=== PATIENT | male | born 1980 | race African-American/Black ===

== ENCOUNTER 2018-02-10 16:36 | Inpatient (IN) | payer SELFPAY ==
[~2018-02-10 16:36] MED LIST: Iopamidol 370 76% 100 ML VIAL ONE; Iopamidol 370 76% 50 ML VIAL FS ONE
--- NOTE | 2018-02-10 16:50 | CT ---
NONCONTRAST HEAD CT: Date: 02/10/18 HISTORY: Evaluate for CVA. Last seen normal at 1530 hours. Found on ground by patient. Right-sided weakness. COMPARISON: 10/06/07. FINDINGS: No parenchymal hemorrhage. No extra-axial hematoma. No midline shift. Basilar cisterns are patent. Br ain volume, age-appropriate. Cortical montgomery-white matter differentiation is preserved. Ventricles and sulci are patent and symmetric. Calvarium is intact. Adequate aeration of the sinuses and mastoid air cells. IMPRESSION: No acute intracranial process. Results of study discussed with Dr. Escalera on 02/10/18 at 1647 hours. CODE CR. POS: [facility]
[2018-02-10 16:55] LABS: #Lymphocytes 1.7 thou/uL (1.20-3.40); #Monocytes 0.6 thou/uL (0.11-0.59); #Neutrophils 4.4 thou/uL (1.40-6.50); %Basophils 0.1 % (0.0-1.0); %Eosinophils 0.6 % (0.0-10.0); %Lymphocytes 24.8 % (21.0-51.0); %Monocytes 9.3 % (0.0-10.0); %Neutrophils 65.3 % (42.0-75.0); Hemoglobin 13.8 g/dL (14.0-18.0); Mean Corpuscular HGB CONC 32.4 g/dL (32.0-36.0); Mean Corpuscular Hemoglobin 28.3 pg (27.0-31.0); Mean Corpuscular Volume 87.3 fL (78.0-98.0); Mean Platelet Volume 7.7 fL (7.4-10.4); Platelet Count 320 thou/uL (130-400); Red Blood Cell (RBC) Count 4.87 mill/uL (4.70-6.10); White Blood Cell (WBC) Count 6.8 thou/uL (4.8-10.8)
[2018-02-10 16:59] LABS: PTT 27.6 SEC (22.9-36.1); Prothrombin Time 12.7 SEC (12.0-14.7)
--- NOTE | 2018-02-10 17:05 | CT ---
CT CERVICAL SPINE WITHOUT CONTRAST: HISTORY: Status post stroke. Fall. COMPARISON: None. TECHNIQUE: CT cervical spine is performed without contrast. Reformatted images are submitted for interpretation . FINDINGS: Straightening of normal cervical lordosis is presumed to be due to patient position, muscle spasm, or cervical collar. The current study is not tailored to assess for ligamentous injury. No craniocervical dissociation. Appropriate alignment of the lateral masses of C1 and C2 as well as the facets. Odontoid process is intact. There are varying degrees of central canal stenosis and foraminal narrowing on the basis of degenerat leodan change. Evaluation is limited by technique. Soft tissue neck structures, upper mediastinum, and lung apices are unremarkable. Cervical spine vertebral body height is maintained. There is no cervical spine fracture. IMPRESSION: 1. No cervical spine fracture. 2. Straightening of normal cervical lordosis as detailed above. If there is concern, consider MRI. POS: [facility]
[2018-02-10 17:09] LABS: ALT (SGPT) 25 U/L (8-55); AST (SGOT) 24 U/L (5-34); Albumin 4.2 g/dL (3.5-5.0); Alkaline Phosphatase 61 U/L (40-150); Anion Gap 9 mmol/L (10-20); BUN (Urea Nitrogen) 10 mg/dL (8.9-20.6); Bilirubin, Total 0.3 mg/dL (0.2-1.2); Calc. Creatinine Clearance 0 mL/min (70-130); Calcium 9.3 mg/dL (7.8-10.44); Carbon Dioxide 27 mmol/L (22-29); Chloride 109 mmol/L (98-107); Estimated GFR-MDRD Greater than 90; Globulin 3.2 g/dL (2.4-3.5); Glucose 93 mg/dL (70-105); Potassium 3.9 mmol/L (3.5-5.1); Protein, Total 7.4 g/dL (6.0-8.3); Sodium 141 mmol/L (136-145)
[2018-02-10] MEDS ORDERED: Heparin 10,000 UNITS/1 ML VIAL ONE ×2 (17:14→17:17)
[2018-02-10] MEDS ORDERED: Lidocaine 1% (PF) 30 ML VIAL ONE (17:14)
--- NOTE | 2018-02-10 17:21 | CT ---
CT ANGIOGRAM OF THE HEAD CT ANGIOGRAM OF THE NECK: HISTORY: Left-sided weakness. COMPARISON: None. TECHNIQUE: CT angiogram of the head and neck are performed in the axial plane. Three-dimensional reformatted im ages are submitted for interpretation. FINDINGS: On the postcontrast head CT cortical montgomery-white matter differentiation appears to be preserved with t he exception of the left insular cortex where there is some subtle hypoattenuation. Bilateral ocular lenses are appropriately located. Both globes are intact. Retrobulbar fat is prese rved. Symmetric attenuation of the optic nerves and ocular rectus muscles. No obvious masses in the oral cavity. Limited evaluation by dental amalgam artifact. Epiglottis has a normal caliber. Preepiglottic fat is preserved. Symmetric attenuation of the parotid and submandibular glands. Thyroid gland is unremarkable. Symme tric attenuation of the cleidomastoid muscles. No evidence of lymphadenopathy. Upper mediastinum and lung apices are unremarkable. Cervical spine vertebral body heights are maintained. No fractures. CT ANGIOGRAM: The aortic arch has appropriate enhancement and luminal diameter. RIGHT CAROTID: The origin of the right carotid artery has appropriate enhancement and luminal diameter. The right c ommon carotid artery, carotid bifurcation, and internal carotid artery have appropriate enhancement a nd luminal diameter. LEFT CAROTID: The origin of the left carotid artery has appropriate enhancement and luminal diameter . The left common carotid artery, carotid bifurcation, proximal and mid internal carotid artery have appropriate enhancement and luminal diameter. The distal internal carotid artery is slightly diminu tive. Both vertebral arteries are patent throughout their course in the neck. Bilateral subclavian arterie s are unremarkable. CT ANGIOGRAM OF THE HEAD: The right intracranial internal carotid artery is unremarkable. There is narrowing of the left aubree us and cavernous carotid segment with vascular occlusion of the left paraclinoid segment. Thrombus e xtends into the ICA trifurcation and into the proximal left and right A1 and M1 segments respectively . There is some contrast opacification of the left A1 segment, likely via patent anterior communicat ing artery. Both A2 segments, right A1 and M1 segments are unremarkable. Opacification of the mid t o distal left M1 segment is likely due to collateral flow, possibly from a patent posterior communica ting artery. The overall vessels in the left and right MCA branches are symmetric. Both intracranial vertebral arteries and the basilar artery have appropriate enhancement and luminal diameter. The left and right P1 segments are unremarkable. 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 Results of the study discussed with Dr. Escalera 02/10/2018 at 12:09 p.m. CODE [place]UR[place] POS: [facility]
[2018-02-10 17:27] LABS: Acetaminophen Less than 6.0 mcg/mL (10.0-30.0); Alcohol Less than 10 mg/dL (Less than 10); Salicylate Less than 8.0 mg/dL (15.0-30.0)
[2018-02-10] MEDS ORDERED: Fentanyl 100 MCG/2 ML VIAL ONE (17:32)
[2018-02-10] MEDS ORDERED: Labetalol HCl 100 MG/20 ML VIAL SLOW IVP PRN (19:09)
[2018-02-10] MEDS ORDERED: niCARdipine HCl 25 MG in Sodium Chloride 0.9% 250 ML 240 ML IVPB PRN (19:09)
[2018-02-10 20:26] LABS: Actual Bicarbonate (HCO3a) 23.3 mEq/L (22-28); Base Excess (BEa) -4.1 mEq/L (-2.0 to +3.0); CO2 Tension 51.7 mmHg (35.0-45.0); Calcium, Ionized 1.05 mmol/L (1.12-1.30); Carboxyhemoglobin (COHb) 1.2 gm% (0.0-3.0); Hemoglobin (Hb) 13.6 g/dL (14.0-18.0); O2 Tension (PaO2) 333.6 mmHg (80.0-100.0); Potassium - ABG Lab 3.69 mmol/L (3.70-5.30); pH, Arterial 7.27 (7.35-7.45)
--- NOTE | 2018-02-10 20:29 | PRG ---
DATE OF SERVICE: 02/10/2018 SUBJECTIVE: Mr. Jay is a 37-year-old male witnessed by his family to have the abrupt onset of weakness and altered sense of consciousness. He was brought to the ER, where he underwent a noncontrast head CT, which was negative for hemorrhage. Subsequent to that, he underwent a CT angiogram, which revealed presence of occlusion of the distal ICA terminus on the left. He also had a separate clot burden within the distal aspect of the M1 segment of the left middle cerebral artery. He was administered tPA in the ER and transferred to the cath lab manager for angiogram with mechanical thrombectomy. He underwent mechanical thrombectomy and subsequently will be admitted to the ICU for further evaluation, including risk factor stratification for stroke. Job ID: [id number] [facility]
[2018-02-10 20:33] LABS: ALV-art Gradient 314.775 (0-20); Puncture Site LINE
--- NOTE | 2018-02-10 20:48 | RAD ---
FRONTAL RADIOGRAPH CHEST: 02/10/2018 HISTORY: Reintubation. FINDINGS: The patient is slightly rotated to the right. Endotracheal tube terminates over the tracheal air col umn, at the level of the clavicles. Nasogastric tube extends into the left upper quadrant. There is elevation of the right hemidiaphragm. Supine imaging limits assessment for pneumothorax or pleural fluid. There is pulmonary vascular congestion with perihilar interstitial and alveolar opacity. No focal co nsolidation. IMPRESSION: 1. Lines and tubes as detailed above. 2. Interstitial and alveolar opacity in the perihilar regions suggest pulmonary edema or aspiration. Short-term follow-up imaging, following treatment to document resolution, advised. POS: [facility]
[2018-02-10] MEDS ORDERED: Propofol 1,000 MG/100 ML VIAL IV ONE (21:13)
[2018-02-10] MEDS ORDERED: Lorazepam 2 MG/ML VIAL ONE (21:13)
[2018-02-10] MEDS ORDERED: Morphine 2 MG/ML SYRINGE SLOW IVP PRN (21:15)
[2018-02-10] MEDS ORDERED: Fentanyl BOLUS 250 ML IVPB PRN (21:15)
[2018-02-10] MEDS ORDERED: Propofol BOLUS 1,000 MG/100 ML VIAL IV PRN (21:15)
[2018-02-10] MEDS ORDERED: fentaNYL Citrate/PF 2,000 MCG in Sodium Chloride 0.9% 60 ML IV SCH (21:15)
[2018-02-10] MEDS ORDERED: DISCONTINUE PREVIOUS NARCOTIC PAIN MEDICATIONS AND BENZODIAZEPINES FS SCH (21:15)
[2018-02-10] MEDS: Communication Order-Pharmacy FS SCH (21:15)
[2018-02-10] MEDS: Atorvastatin Calcium 40 MG TAB PO SCH (21:46)
[2018-02-10] MEDS ORDERED: PHENYLEPHRINE-NS 100 MCG/ML 10 ML SYRINGE ONE (22:11)
[2018-02-10] MEDS ORDERED: Lidocaine 1% PF 5 ML VIAL ONE (22:11)
[2018-02-10] MEDS ORDERED: PROPOFOL 200 MG/20 ML VIAL ONE (22:11)
[2018-02-10] MEDS ORDERED: Rocuronium Bromide 50 MG/5 ML VIAL IVP SCH (22:45)
[2018-02-10] MEDS: Propofol 1,000 MG/100 ML VIAL IV PRN (23:00)
[2018-02-10] MEDS: Sodium Chloride 0.9% 1,000 ML IV SCH (23:00)
[2018-02-11] MEDS: Lorazepam 2 MG/ML VIAL SLOW IVP PRN ×5 (01:10→23:46)
[2018-02-11] MEDS: Propofol 1,000 MG/100 ML VIAL IV PRN ×6 (03:00→20:36)
[2018-02-11] MEDS ORDERED: Acetaminophen 650 MG Suppository PR PRN (04:23)
[2018-02-11] MEDS ORDERED: Acetaminophen 650 MG in Premix Bag 1 BAG IVPB PRN (04:23)
[2018-02-11 05:01] LABS: Cardiac Risk 3.1 (Less than 4.5)
[2018-02-11] MEDS: Piperacillin/Tazobactam 3.375 GM in Sodium Chloride 0.9% 100 ML IVPB SCH ×3 (05:33→18:41)
[2018-02-11 06:41] LABS: Cocaine Metabolite Screen Not Detected (NotDetected); Medtox Reader # READER 4; Phencyclidine (PCP) Detected (NotDetected); THC/Cannabinoid Screen Not Detected (NotDetected)
[2018-02-11 06:42] LABS: Amphetamine Not Detected (NotDetected); Barbiturates Screen Not Detected (NotDetected); Benzodiazepine Screen Detected (NotDetected); Medtox Control Line Valid? VALID (VALID); Methadone Not Detected (NotDetected); Methamphetamine Not Detected (NotDetected); Opiate Screen Not Detected (NotDetected); Oxycodone Screen Not Detected (NotDetected); Tricyclic Screen Not Detected (NotDetected)
--- NOTE | 2018-02-11 07:10 | CON ---
DATE OF CONSULTATION: 02/11/2018 PRIMARY CARE PHYSICIAN: None. CHIEF COMPLAINT: Ischemic CVA, status post tPA and thrombectomy. HISTORY OF PRESENTING ILLNESS: Mr. Jay is a 37-year-old Afro-[place] Citizen male with past medical history significant for drug abuse and tobacco abuse, otherwise unknown, who presented to the emergency room last night for altered mental status. The history is mainly obtained by the record review. The patient is currently intubated and sedated and there are no family members at bedside. Care was discussed with the MEASURING MACHINE OPERATOR. According to the notes from the emergency room, he was brought into the ER via EMS for concerns for CVA. He was last seen normal at 1530 hours yesterday. According to the patient's mother, she heard a thud and went to check on the patient and found him on the floor with garbled speech. He was also noticed to have altered mental status, right-sided facial droop, and right-sided weakness. En route, he was alert and oriented to self only. Upon presentation to the emergency room, his blood pressure was 111/79, pulse of 69, respirations 19, saturating 99% on room air, and temperature 98.6. On physical examination, he was found to have right-sided weakness and right-sided facial droop. A 12-lead EKG showed early repolarization changes and normal sinus rhythm. CT scan of the head showed no acute intracranial process. CT scan of the cervical spine was negative for any spinal fracture. He underwent a CT angio of the head and neck, which showed thrombus in the left intracranial internal carotid artery with extension of the thrombus in the left internal carotid artery bifurcation into both A1 and M1 segments. The emergency room physician consulted with Interventional Neurosurgery, Dr. Clifford, and the patient received tPA and was taken to cardiac pathology lab technician. Dr. Clifford has performed thrombectomy on this patient and according to the report, he was extubated subsequent to this surgery and was brought to the CCU, but was immediately found to have gurgling respirations and was deemed unsafe to maintain airway and was re-intubated by the HOUSEHOLD APPLIANCE MECHANIC. According to the CCU RN, the patient has started to have seizures. Internal Medicine team has been consulted with regard to medical management. PAST MEDICAL HISTORY: Largely unavailable. PAST SURGICAL HISTORY: Largely unavailable. PSYCHIATRIC HISTORY: Largely unavailable. MEDICATION: Largely unavailable. ALLERGIES: LARGELY UNAVAILABLE. ACCORDING TO THE ER NOTE, HE HAS NO KNOWN MEDICATION ALLERGIES AND NO CURRENT MEDICATION. PATIENT IS INTUBATED AND SEDATED AND IS NOT ABLE TO PROVIDE ANY HISTORY AND THE FAMILY IS NOT AT BEDSIDE. SOCIAL HISTORY: He reportedly smoked one pack of cigarettes per day and does some drugs including marijuana. REVIEW OF SYSTEMS: Unobtainable due to intubation and sedation. LABORATORY DATA: CBC is unremarkable. Hemoglobin is 13.8 without any available baseline. His PT, PTT, and INR are unremarkable. His ABG on ventilator shows pH of 7.27, pCO2 of 51, and 333. His serum chemistry showed chloride of 109, otherwise unremarkable. Creatine kinase is 784. Troponin less than 0.010. Lipid panel unremarkable. His serum salicylate, acetaminophen, and alcohol level are negligible. DIAGNOSTIC DATA: Chest x-ray by my review shows endotracheal tube in place and some pulmonary edema versus aspiration with interstitial and alveolar opacity in the perihilar regions. CT angio done in the emergency room as per HPI. He did have a CT scan of cervical spine, which was negative for any fractures. PHYSICAL EXAMINATION: VITAL SIGNS: Most recent vital signs; temperature 97.5 and a T-max of 100.2 by the bladder probe. Pulse of 94, blood pressure 116/81, and saturating 100% on ventilator. GENERAL EXAMINATION: No acute distress. He is intubated and sedated. HEENT EXAMINATION: Mucous membrane is moist and pink. No oropharyngeal exudate or erythema. Head is normocephalic, atraumatic. Pupils equal, reactive to light. NECK: Supple without any lymphadenopathy, JVD, or bruit. CHEST: Clear to auscultation, without any wheezing, rales or rhonchi. HEART: Rhythm is regular without any murmurs or gallops. ABDOMEN: Soft, nontender, and nondistended with positive bowel sounds. EXTREMITIES: Free of any cyanosis, clubbing, or edema. NEUROLOGICAL EXAMINATION: Limited as he is sedated and intubated. Babinski is upgoing bilaterally more prominent in the right foot. Seizures were noticed earlier by the RN, not apparent to me at this time. SKIN: Free of any rashes or bruises. Feels warm and dry to touch. IMPRESSION AND PLAN: 1. Ischemic cerebrovascular accident. Etiology is unclear at this time. He is status post tPA and thrombectomy. We will continue to follow with primary team. He will be monitored in the CCU setting. He will be intubated for respiratory airway protection. Neurology consult has been put in by the primary team. He will have a repeat CT scan of the brain by Neurosurgery in the morning. We will perform an echocardiogram to rule out cardiac thrombus. Also, obtain hypercoagulable panel, DELL screen, drug screen, homocysteine level, and ESR to rule out other possible causes of thrombotic cerebrovascular accident. The patient will be on nicardipine drip to keep blood pressure less than 140 as per Neurosurgery. Aspirin and statin have been started. 2. Seizures. This is secondary to acute cerebrovascular accident. He was loaded with fosphenytoin and he will be continued on Keppra b.i.d. Seizure precautions will be instituted. 3. Aspiration pneumonia. The patient has been having low-grade fevers with chest x-ray suggestive of aspiration pneumonia in the proper clinical setting. He will be started on empiric Zosyn for now. 4. Acute respiratory failure. This is secondary to inability to maintain airway from acute cerebrovascular accident. Vent management per Pulmonary team. 5. History of drug abuse. Urine drug screen has been ordered. 6. Deep venous thrombosis and gastrointestinal prophylaxis. He will be on SCDs and we will add IV Protonix to prevent stress ulcers. 7. Add p.r.n. medication orders. DISPOSITION: Mr. Jay is currently being admitted to the hospital with acute ischemic CVA. Internal Medicine team has been consulted for medical management and will follow along. Job ID: [id number]
--- NOTE | 2018-02-11 08:13 | CT ---
PRELIMINARY REPORT/[facility]/EMERGENTY AFTER-HOURS PROCEDURE Addendum created by Duncan Pinto MD on 02/11/2018 4:37 AM Central Time ([place] & [place]) The findings we re verbally communicated via telephone conference with Dr. Trevino at 4:27 AM [employer]OTO[employer]APH[employer] on 02/11/2018. Initial Report created on 02/11/2018 4:24 AM Central Time ([place] & [place]) CT Head Without Contrast EXAM DATE/TIME: 02/11/2018 3:41 AM CLINICAL HISTORY: 37 years old, male; Condition or disease; Other: CVA; Patient HX: S/P tpa TECHNIQUE: Axial computed tomography images of the head/brain without contrast. COMPARISON: No relevant prior studies available. FINDINGS: Brain: Some motion artifact. Area of apparent loss of montgomery-white differentiation in the left frontopa rietal region superiorly. Otherwise unremarkable. No hemorrhage. Ventricles: Unremarkable. Bones/joints: No acute fracture. Sinuses: Unremarkable. Mastoid air cells: Unremarkable. Soft tissues: Left parietal scalp swelling/thickening. IMPRESSION: No evidence of hemorrhage. Possible area of infarct involving the left frontoparietal region. Thank you for allowing us to participate in the care of your patient. Dictated and Authenticated by: Duncan Pinto MD 02/11/2018 4:24 AM Central Time ([place] & [place]) FINAL REPORT CT HEAD NONCONTRAST PERFORMED ON AN EMERGENCY BASIS: Date: 02/11/18 Time: 0342 hours HISTORY: CVA. TPA administration. COMPARISON: 02/10/18. FINDINGS: Findings agree with the preliminary report by Joshua. No acute intracranial hemorrhage is evident. Subt le area of loss of montgomery-white junction differential at the left posterior frontal level. Possible dev eloping infarct. POS: [facility]
[2018-02-11 09:42] LABS: Base Excess (BEa) 1.6 mEq/L (-2.0 to +3.0); CO2 Tension 26.9 mmHg (35.0-45.0); Calcium, Ionized 1.04 mmol/L (1.12-1.30); Carboxyhemoglobin (COHb) 0.6 gm% (0.0-3.0); Hemoglobin (Hb) 12.2 g/dL (14.0-18.0); Potassium - ABG Lab 3.02 mmol/L (3.70-5.30)
[2018-02-11] MEDS: Pantoprazole 40 MG VIAL IVP SCH (09:42)
[2018-02-11 09:44] LABS: ALV-art Gradient 199.525 (0-20); Puncture Site LINE; pH, Arterial 7.55 (7.35-7.45)
[2018-02-11] MEDS: Sodium Chloride 0.9% 1,000 ML IV SCH ×2 (13:10→22:34)
--- NOTE | 2018-02-11 16:00 | CON ---
DATE OF CONSULTATION: HISTORY OF PRESENT ILLNESS: This is a 37-year-old gentleman, whose two sisters are at the bedside. He apparently lives with his mother in [place] and apparently he was ready to go to work at [employer] and he was found down. He had CVA with right-sided facial droop and slurred speech. He was brought to the hospital where an emergency CT head was negative. CT angio showed as outlined thrombus in the left intracranial internal carotid artery with extension of thrombus in the left internal carotid artery bifurcation. Underwent tPA, he was taken to surgery by Dr. Clifford and underwent mechanical thrombectomy. He was extubated in the slab off mill tender, however, he arrived to the ICU. He had an unprotected airway, he is gurgling, respiratory distress, and re-intubated again. His chest x-ray taken post intubation shows pulmonary edema, probably neurogenic. This is to say is that he has had previous history of substance abuse including PCP. He smokes marijuana. Also tobacco a pack a day. He takes no medication apparently. PAST MEDICAL HISTORY: No history of diabetes or hypertension. PREVIOUS SURGERIES: Some kind of laceration to his head following a trauma many years ago. SOCIAL HISTORY: Works at [employer]. CHRONIC MEDICATIONS: None. ALLERGIES: NONE PER THE FAMILY HISTORY. PHYSICAL EXAMINATION: VITAL SIGNS: Intubated on the vent. He was sedated. Pulse 84, blood pressure 116/71, sats 100%, and respiratory rate 18. CHEST: Decreased breath sounds without any wheezing. CARDIAC: Normal S1 and S2. No gallops. ABDOMEN: Soft. HEENT: Pupils are equal. LABORATORY DATA: His drug screen shows phencyclidine and benzos. Alcohol was normal. Chest x-ray shows edema. White count 6000, hemoglobin and hematocrit 13 and 42, and platelet count is normal. His pO2 was 333, pCO2 of 51 and pH 7.27 his lytes are normal. IMPRESSION: 1. Acute left-sided cerebrovascular accident with right-sided weakness, emergency thrombectomy, tPA. 2. Noncardiogenic pulmonary edema. 3. Substance abuse. Tobacco abuse. 4. His repeat blood gases this morning shows his pO2 is 159, pCO2 Repeat CT of the brain shows no acute intracranial hemorrhage. PLAN: 1. Wean as tolerated. 2. Continue supportive care. 3. Serial exam. TIME SPENT: This is a 45 minute critical care time. Job ID: [id number]
[2018-02-11] MEDS: Atorvastatin Calcium 40 MG TAB PO SCH (20:36)
[2018-02-11] MEDS: Communication Order-Pharmacy FS SCH (20:36)
--- NOTE | 2018-02-11 22:36 | CCLSPC ---
DATE OF NOTE: 02/10/18 SURGEON: Sarthak Clifford M.D. PHARMACOLOGY ASSOCIATE: None. INDICATION: Internal carotid artery and middle cerebral artery thrombus with occlusion. PROCEDURE: Angiography with mechanical thrombectomy. ANESTHESIA: General. TECHNIQUE: The patient Was brought into the angiogram suite and placed on the table in the supine position. Both groins were prepped and draped in the usual sterile fashion. 1% lidocaine was used to inject the right groin. A 5 Nigerian micropuncture site was used to gain access to the right common femoral artery. Using the Seldinger technique, an 8 Nigerian sheath was placed. An 8 Nigerian concentric guide catheter passed over 125 cm overt diagnostic catheter which was passed over a Borderfree guidewire was advanced into the left internal carotid artery. There was an AP and lateral angiogram performed. Angiography revealed sluggish flow through the internal carotid artery as well as occlusion of the ICA terminus region with no filling of the MCA or GRAZYNA branches. A mechanical Chiba device was subsequently deployed placing it throughout the M1 segment of the middle cerebral artery. It was retrieved with clot burden where there was anglican of flow through the internal carotid artery as well as the majority of the M1 segment of the middle cerebral artery. After anglican of flow it was revealed there remained distal occlusion of the distal aspect of the of the middle cerebral artery which was evident on patient's CT angiogram. He also had evidence of partial occlusion of the left A1 segment of the anterior cerebral artery. The mechanical Chiba device was deployed yet a second time into the middle cerebral artery. Again, clot burden was retrieved. There was sluggish flow into the circulation vessel at that point in time where I evaluated the cervical portion of the internal carotid artery which reveals fairly extensive vasospasm. We augmented the patient's blood pressure so that his systolic pressures are in the 130 to 140 range at which point in time he started to have more robust flow through that vessel which also revealed the presence of anglican of flow through the middle cerebral artery at that point in time. I was prepared to administer Papaverine or calcium channel arron, but given the improvement in flow with blood pressure augmentation alone, I chose not to. There is no evidence of dissection present. All catheters were then removed. The sheath was sewn in secondary to recent TPA administration. The procedure came to an end. IMPRESSION: The patient underwent angiography. The angiography initially revealed a complete occlusion of the left internal carotid artery at the terminus region. After one Trevo pass, anglican was restored through the terminal aspect of the internal carotid artery as well as the A1 segment and M1 segment of the middle cerebral. There remained persistent occlusion of the distal aspect of the M1 segment near the M2 segment of the left middle cerebral artery. There is also occlusion of the mid portion of the A2 segment of the anterior cerebral artery on the left side. A second Trevo passed restored flow into the middle cerebral artery. There was subsequent vasospasm present within the cervical portion of the carotid artery which subsequently improved with time and blood pressure augmentation. MTDD
[2018-02-12] MEDS: Piperacillin/Tazobactam 3.375 GM in Sodium Chloride 0.9% 100 ML IVPB SCH ×5 (00:19→23:28)
--- NOTE | 2018-02-12 00:44 | CON ---
DATE OF CONSULTATION: 02/11/2018 TYPE OF CONSULTATION: Neurology. CONSULTING PHYSICIAN: Hospitalist Service. IMPRESSION: 1. Acute thrombus in the left internal carotid artery by CTA, status post tPA and an emergency procedure. 2. Secondary seizure. 3. The patient has been sedated with propofol at this point. PLAN: 1. Wean from propofol as able. 2. Continue Keppra 500 mg twice a day. HOSPITAL COURSE: Mr. Jay is a 37-year-old black gentleman, who apparently has a drug problem. He came in with an acute onset of right hemiparesis after being found down by his mother. His CTA was positive for ICA thrombus. He was given tPA and then Dr. Clifford did an emergency procedure on him. He apparently had a secondary seizure, started on Dilantin. He is now intubated on propofol drip. His echocardiogram shows a normal ejection fraction without evidence of valvular disease. His followup CT scan of the brain shows no evidence of any secondary bleeding. His drug screen was positive for PCP. There is no other history available. PAST HISTORY: Otherwise reportedly negative. ALLERGIES: NONE REPORTED. REVIEW OF SYSTEMS: Not obtainable. PHYSICAL EXAMINATION: GENERAL: He is a healthy-appearing, middle-aged man, on ventilatory support. VITAL SIGNS: Blood pressure 110/70, pulse 79, respirations 10, and saturations 100%. HEENT: Pupils are symmetric and minimally reactive. Doll's head maneuver did not alter the position of the eyes. There is no spontaneous motor activity. He did have a withdrawal response to pain in both of his feet. Plantar responses were upgoing bilaterally. DIAGNOSTIC DATA: EKG shows sinus rhythm. SUMMARY: A middle-aged man with drug abuse. It resulted in a secondary stroke and seizure, probably need to continue on an anticonvulsant for the foreseeable future. Once weaned off the ventilator and sedation, we will better able to assess his neurologic status. Job ID: [id number]
[2018-02-12] MEDS: Propofol 1,000 MG/100 ML VIAL IV PRN ×2 (00:57→07:09)
[2018-02-12 04:38] LABS: #Eosinphils 0.1 thou/uL (0.0-0.7); #Lymphocytes 1.7 thou/uL (1.20-3.40); #Monocytes 0.9 thou/uL (0.11-0.59); #Neutrophils 5.9 thou/uL (1.40-6.50); %Basophils 0.1 % (0.0-1.0); %Eosinophils 1.3 % (0.0-10.0); %Lymphocytes 19.5 % (21.0-51.0); %Monocytes 10.1 % (0.0-10.0); Hemoglobin 12.2 g/dL (14.0-18.0); Mean Corpuscular HGB CONC 33.1 g/dL (32.0-36.0); Mean Corpuscular Hemoglobin 28.6 pg (27.0-31.0); Mean Corpuscular Volume 86.3 fL (78.0-98.0); Mean Platelet Volume 8.6 fL (7.4-10.4); Platelet Count 184 thou/uL (130-400); RBC Distribution Width 13.9 % (11.5-14.5); Red Blood Cell (RBC) Count 4.28 mill/uL (4.70-6.10); White Blood Cell (WBC) Count 8.6 thou/uL (4.8-10.8)
[2018-02-12 04:44] LABS: Anion Gap 11 mmol/L (10-20); BUN (Urea Nitrogen) 5 mg/dL (8.9-20.6); Calc. Creatinine Clearance 149 mL/min (70-130); Carbon Dioxide 23 mmol/L (22-29); Chloride 111 mmol/L (98-107); Estimated GFR-MDRD Greater than 90; Glucose 76 mg/dL (70-105); Potassium 3.2 mmol/L (3.5-5.1); Sodium 142 mmol/L (136-145)
[2018-02-12 07:22] LABS: Actual Bicarbonate (HCO3a) 22.9 mEq/L (22-28); Base Excess (BEa) -1.1 mEq/L (-2.0 to +3.0); CO2 Tension 35.8 mmHg (35.0-45.0); Calcium, Ionized 1.07 mmol/L (1.12-1.30); Hemoglobin (Hb) 12.3 g/dL (14.0-18.0); O2 Tension (PaO2) 131.7 mmHg (80.0-100.0); Potassium - ABG Lab 3.08 mmol/L (3.70-5.30); Puncture Site RRA; pH, Arterial 7.42 (7.35-7.45)
[2018-02-12 08:20] LABS: INR-International Normal Ratio 1.6; Prothrombin Time 19.1 SEC (12.0-14.7)
[2018-02-12 08:21] LABS: PTT 39.7 SEC (22.9-36.1)
[2018-02-12] MEDS: Aspirin 300 MG Suppository PR SCH (08:26)
[2018-02-12] MEDS: Aspirin 325 mg Enteric Coated Tablet PO SCH (08:26)
[2018-02-12] MEDS: Pantoprazole 40 MG VIAL IVP SCH (08:27)
[2018-02-12 08:28] LABS: D-Dimer Test 7.37 *mcg/mL (0.27-0.43)
[2018-02-12] MEDS ORDERED: DC Sedation Protocol FS ONE (08:40)
--- NOTE | 2018-02-12 08:54 | RAD ---
PORTABLE SEMIUPRIGHT FRONTAL CHEST RADIOGRAPH: DATE: 02/12/2018. COMPARISON: 02/10/2018. HISTORY: Ventilated patient. FINDINGS: Endotracheal tube and nasogastric tube in place. Heart and mediastinal contours are stable. There i s no pneumothorax, pleural fluid, lobar consolidation, or alveolar edema. IMPRESSION: No acute findings. POS: [facility]
--- NOTE | 2018-02-12 09:40 | PRG ---
DATE OF SERVICE: SUBJECTIVE: This morning, HEwas coughing for witch was sedated on Diprivan ,, which will be withheld.now OBJECTIVE: VITAL SIGNS: Blood pressure 133/76, vent is set at 10, he is breathing 10, temperature 99, saturation 100%. HEENT: Pupils are equal. CHEST: Decreased breath sounds. No wheezing. CARDIAC: Sinus tach. ABDOMEN: Soft without any masses. DIAGNOSTIC STUDIES: Chest x-ray is normal. Yesterday's infiltrate is resolved. White count is 8000, H and H is unremarkable, platelet count is normal. His PO2 is 131, pCO2 is 35, pH is 7.42 on 35% FiO2. His lytes are normal. IMPRESSION: 1. Status post emergency tPA mechanical thrombectomy for a left internal carotid artery thrombus. 2. Secondary seizures presumably. PLAN: 1. He is on Keppra. 2. Once sedation is withheld, we will try weaning. 3. Empiric antibiotics, we will probably switch him over to old medication once off the vent. One half hour of critical care time. Job ID: [id number] MTDD
[2018-02-12 12:08] LABS: DRVVT Screen 43.2 SEC (20-50)
[2018-02-12 12:09] LABS: DRVVT Confirm 61.4; DRVVT Ratio 0.7 Ratio (1.2 or Less)
[2018-02-12] MEDS: Sodium Chloride 0.9% 1,000 ML IV SCH (12:10)
[2018-02-12 12:43] LABS: Thrombin Time 19.9 secs (14.3-20.0)
[2018-02-12 12:54] LABS: Protein C Activity 69 % (78-152)
[2018-02-12 13:40] LABS: Factor IX Test 119.3 % ACTIVE (56-149); Factor VIII Test 98.1 % ACTIVE (56-157)
--- NOTE | 2018-02-12 14:19 | PRG ---
DATE OF SERVICE: 02/12/2018 SUBJECTIVE: The patient was just extubated this morning. He is still very drowsy, but he is able to answer my simple questions. OBJECTIVE: VITAL SIGNS: Blood pressure is 130/85, pulse is 85, respiratory rate is 21, and O2 saturation is 100%. HEENT: His head is atraumatic and normocephalic. He follows my commands. Sclerae nonicteric. Pupils are responding to light properly. Conjunctivae pinkish. Oral mucosa is slightly dry. NECK: Supple. LUNGS: Clear. HEART: S1 and S2 normal. No S3. No S4. No any murmur. ABDOMEN: Soft and nontender. Bowel sounds are present. No organomegaly. EXTREMITIES: No clubbing, cyanosis, or edema. NEUROLOGIC: He is alert and oriented x3. He slowly comes around. He is still very comatose. He recognized his brother. He has some mild weakness of the right side of the face and right upper extremity is 3/5. The right lower extremity shows minimal weakness compared to the left lower extremity. LABORATORY DATA: White count of 8.6, hemoglobin 12.2, hematocrit 36.9, and platelet count is 184,000. INR 1.6, PT of 19.1, and APTT 39.7. D-dimer is 7.37. Lupus anticoagulant 0.7. Protein-C chromogenic 69. The rest of the hypercoagulable panel is pending. ABGs from this morning showed a pH of 7.42, pCO2 of 35.8, pO2 of 131.7, and base excess -1.1. Sodium is 141, potassium 3.2, chloride 111, CO2 of 23, BUN 5, creatinine 0.89, glucose 76, and calcium 8.0. Homocystine 7.79. Chest x-ray showed no acute cardiopulmonary abnormalities. IMPRESSION: 1. Left cerebrovascular accident with right-sided weakness, status post intubation and mechanical ventilation, status post extubation for airway protection and pulmonary edema. 2. Noncardiogenic pulmonary edema, resolved. 3. Substance abuse. 4. Seizures. The patient is on fosphenytoin and Keppra. Neurologist saw the patient and he recommends to continue Keppra 500 twice a day. PLAN: So, plan is to continue his current regimen, which is aspirin 325, Keppra 500 twice a day IV piggyback, pantoprazole 40 IV push daily, and Zosyn q.6. If he does well, most likely antibiotic will be stopped in the next 24 hours. Job ID: [id number]
[2018-02-12] MEDS: Atorvastatin Calcium 40 MG TAB PO SCH (20:41)
[2018-02-12] MEDS: Communication Order-Pharmacy FS SCH (21:56)
[2018-02-13] MEDS: Sodium Chloride 0.9% 1,000 ML IV SCH ×3 (03:47→20:57)
[2018-02-13] MEDS: Piperacillin/Tazobactam 3.375 GM in Sodium Chloride 0.9% 100 ML IVPB SCH (05:21)
[2018-02-13] MEDS: Pantoprazole 40 MG VIAL IVP SCH (08:26)
[2018-02-13] MEDS: Aspirin 325 mg Enteric Coated Tablet PO SCH (08:26)
[2018-02-13] MEDS: levETIRAcetam 500 MG TAB PO SCH ×2 (09:07→20:56)
[2018-02-13] MEDS: Aspirin 300 MG Suppository PR SCH (09:08)
[2018-02-13 09:33] LABS: #Eosinphils 0.1 thou/uL (0.0-0.7); #Lymphocytes 1.9 thou/uL (1.20-3.40); #Monocytes 0.6 thou/uL (0.11-0.59); #Neutrophils 3.4 thou/uL (1.40-6.50); %Basophils 0.4 % (0.0-1.0); %Eosinophils 2.3 % (0.0-10.0); %Lymphocytes 31.4 % (21.0-51.0); %Monocytes 9.2 % (0.0-10.0); %Neutrophils 56.8 % (42.0-75.0); Hemoglobin 12.6 g/dL (14.0-18.0); Mean Corpuscular HGB CONC 32.3 g/dL (32.0-36.0); Mean Corpuscular Hemoglobin 27.8 pg (27.0-31.0); Mean Corpuscular Volume 85.9 fL (78.0-98.0); Mean Platelet Volume 7.6 fL (7.4-10.4); Platelet Count 235 thou/uL (130-400); RBC Distribution Width 13.5 % (11.5-14.5); Red Blood Cell (RBC) Count 4.53 mill/uL (4.70-6.10); White Blood Cell (WBC) Count 6.1 thou/uL (4.8-10.8)
[2018-02-13 09:49] LABS: Anion Gap 11 mmol/L (10-20); BUN (Urea Nitrogen) 4 mg/dL (8.9-20.6); Calc. Creatinine Clearance 164 mL/min (70-130); Calcium 8.6 mg/dL (7.8-10.44); Carbon Dioxide 24 mmol/L (22-29); Chloride 107 mmol/L (98-107); Estimated GFR-MDRD Greater than 90; Glucose 80 mg/dL (70-105); Potassium 3.3 mmol/L (3.5-5.1); Sodium 139 mmol/L (136-145)
--- NOTE | 2018-02-13 10:16 | PRG ---
DATE OF SERVICE: 02/13/2018 SUBJECTIVE: The patient is a 37-year-old gentleman, who is status post mechanical thrombectomy and tPA. He is doing well, awake, alert, and responsive. Clearly, he is weak. OBJECTIVE: VITAL SIGNS: His saturations are 98 on room air, blood pressure 103/65, and respirations 18. CHEST: Decreased breath sounds. No wheezing. CARDIAC: Normal S1 and S2. No gallops. ABDOMEN: No masses. IMPRESSION: 1. Status post cerebrovascular accident, thrombus in the left internal carotid, tPA and mechanical thrombectomy, much improved. 2. Possible seizure disorder. PLAN: From a Pulmonary standpoint, he can be transferred out of the ICU. PT and supportive care. Eventually placement. Probably needs counseling regarding his substance abuse. Job ID: [id number]
--- NOTE | 2018-02-13 10:17 | PRG ---
DATE OF SERVICE: 02/13/2018 SUBJECTIVE: The patient is seen and examined at bedside. He is doing significantly better. He passed the test. He can swallow without any danger for aspiration. OBJECTIVE: VITAL SIGNS: Blood pressure is 111/69, pulse is 70, respiratory rate is 15, O2 saturation 100% on room air, and temperature 98.4. HEENT: Head is atraumatic and normocephalic. Pupils are responding to light properly. Sclerae are nonicteric. Oral mucosa is dry. NECK: Supple. LUNGS: Clear. HEART: S1 and S2 normal. No S3. No S4. No any murmur. ABDOMEN: Soft, nontender, and nondistended. EXTREMITIES: No clubbing, cyanosis, or edema. NEUROLOGIC: He is alert. He follows my commands. His right upper extremity weakness is significantly improved. Since yesterday, his right lower extremity is, I believe back to normal function. SKIN: No rash or erythema. LABORATORY DATA: None today. We will obtain BMP. IMPRESSION: 1. Left cerebrovascular accident with right-sided weakness, status post intubation and extubation. 2. Noncardiogenic pulmonary edema, resolved. 3. Substance abuse. 4. Seizures, on Keppra. PLAN: Plan is to start feeding him with heart-healthy diet. Continue Keppra 500 mg twice a day. We will switch him to p.o. We will stop antibiotic, if it is okay with the primary team. Job ID: [id number]
[2018-02-13] MEDS ORDERED: PROPOFOL 200 MG/20 ML VIAL ONE (13:55)
[2018-02-13 15:17] LABS: ANA Symphony (Qualitative) Negative (Negative); ANA Symphony (Quantitative) 0.1 Ratio (< 0.7 Negative); dsDNA IgG Antibody 0.7 IU/mL (<10 Negative)
[2018-02-13 16:30] LABS: Cardiolipin IgA Ab 1.9 APL-U/mL (<14 Negative); Cardiolipin IgG Ab 0.8 GPL-U/mL (<10 Negative); Cardiolipin IgM Ab 0.9 MPL-U/mL (<10 Negative); EliA APS New Method **** NEW METHOD ****; beta-2-Glycoprotein I IgA Ab 1.9 U/mL (<7 Negative); beta-2-Glycoprotein I IgG Ab 0.8 U/mL (<7 Negative); beta-2-Glycoprotein I IgM Abs Less than 2.9 U/mL (<7 Negative)
[2018-02-13] MEDS: Communication Order-Pharmacy FS SCH (20:55)
[2018-02-13] MEDS: Atorvastatin Calcium 40 MG TAB PO SCH (20:56)
[2018-02-14] MEDS: Aspirin 325 mg Enteric Coated Tablet PO SCH (09:27)
[2018-02-14] MEDS: levETIRAcetam 500 MG TAB PO SCH ×2 (09:27→21:23)
[2018-02-14] MEDS: Aspirin 300 MG Suppository PR SCH (09:29)
[2018-02-14] MEDS: Pantoprazole 40 MG VIAL IVP SCH (10:04)
--- NOTE | 2018-02-14 10:10 | PRG ---
DATE OF SERVICE: 02/14/2018 SUBJECTIVE: This morning, he is awake, alert, and responsive. OBJECTIVE: VITAL SIGNS: Saturations are 99% on room air, temperature 98, blood pressure 120/58, and pulse 77. CHEST: No wheezing or crackles. CARDIAC: Normal S1 and S2. No gallop. ABDOMEN: No masses. LABORATORY DATA: Unremarkable. IMPRESSION: 1. Status post cerebrovascular accident, right internal carotid artery thrombus. 2. Seizure disorder. PLAN: Pulmonary ford, supportive care, PT. Eventually placement. Job ID: [id number]
--- NOTE | 2018-02-14 10:33 | PRG ---
DATE OF SERVICE: 02/14/2018 SUBJECTIVE: Mr. Jay is a 37-year-old male status post tPA and mechanical thrombectomy for intracranial thrombus and CVA. He transitioned from the ICU to the floor yesterday. I met with him on the floor where he is awake, interactive, and moves all four extremities well including the right upper extremity, which is antigravity, but is clumsy and not in where he does not have fine motor control. I am optimistic that this will improve with time. Nonetheless, he has made substantial improvement as compared to his exam upon presentation. PLAN: My plan is to transition his care over to the hospitalist service for ongoing management and final disposition determination. Job ID: [id number]
[2018-02-14 11:23] LABS: HEX PHOS LA Tube 1 67.9 SEC; Hexagonal Phospholipid Neut 6.9 SEC (0-8.0)
--- NOTE | 2018-02-14 11:28 | PRG ---
DATE OF SERVICE: 02/14/2018 SUBJECTIVE: The patient is seen and examined at the bedside. He is doing significantly better. He is able to tolerate food. He communicates with us without any problems. No speech disturbance present. OBJECTIVE: VITAL SIGNS: Blood pressure is 120/58, pulse is 77, respiratory rate is 16, and O2 saturation 99% on room air. HEENT: His head is atraumatic and normocephalic. Eyes are PERRLA. Sclerae are nonicteric. Oral mucosa is moist. NECK: Supple. LUNGS: Clear. HEART: S1 and S2 normal. No S3. No S4. No any murmur. ABDOMEN: Soft, nontender. Bowel sounds are present. No organomegaly. EXTREMITIES: No clubbing, cyanosis, or edema. NEUROLOGICAL: He is able to follow my commands. He answers my questions properly. He has some mild weakness in his right hand and right upper extremity, but this is improving quickly. Also, he has a little bit of right facial droop, but this has improved tremendously. LABORATORY DATA: None today. IMPRESSION: 1. Left cerebrovascular accident with right-sided weakness, status post tPA and mechanical thrombectomy for intracranial thrombus. 2. Noncardiogenic pulmonary edema, resolved. 3. Substance abuse. 4. Seizures, on Keppra. PLAN: From my point, he can be discharged home with home health today to continue PT and that is up to the primary team. Job ID: [id number]
[2018-02-14 12:44] VITALS: BMI 29.5
[2018-02-14] MEDS: Communication Order-Pharmacy FS SCH (19:29)
[2018-02-14] MEDS: Atorvastatin Calcium 40 MG TAB PO SCH (21:23)
[2018-02-15] MEDS: Aspirin 325 mg Enteric Coated Tablet PO SCH (08:55)
[2018-02-15] MEDS: levETIRAcetam 500 MG TAB PO SCH (08:55)
[2018-02-15] MEDS: Aspirin 300 MG Suppository PR SCH (08:55)
[2018-02-15 12:17] VITALS: BP 123/60; TEMP 98.3
--- NOTE | 2018-02-15 17:46 | DIS ---
DATE OF ADMISSION: 02/10/2018 DATE OF DISCHARGE: 02/15/2018 Please note that no H and P is available at this time. PRIMARY CARE PHYSICIAN: None. The patient has been given referral to [facility]. DISCHARGE DIAGNOSES: 1. Acute ischemic cerebrovascular accident, status post tPA and mechanical thrombectomy for intracranial thrombus. 2. Noncardiogenic pulmonary edema, resolved. 3. Substance abuse. 4. Seizures either primary or secondary due to cerebrovascular accident. DISCHARGE MEDICATIONS: 1. Aspirin 325 mg daily. 2. Lipitor 40 mg daily. 3. Keppra 500 mg p.o. b.i.d. IN-HOUSE CONSULTATION: 1. Neurology, Dr. Peace. 2. Pulmonary Medicine. PRIMARY IN-HOUSE: Neurosurgery, Dr. Sarthak Clifford. INTERNAL MEDICINE: [facility]. PROCEDURES DONE IN THE HOSPITAL: 1. Angiography with mechanical thrombectomy by Dr. Clifford. 2. CT scan of the brain upon presentation with repeat CT scans in the hospital. Initial CT scan was negative, but the repeat CT scan done the next day after thrombectomy showed no intracranial hemorrhage, but a subtle area of the left posterior frontal change suggestive of infarction. 3. CT angio of [place] and neck, which shows thrombus in the left intracranial internal carotid artery with extension of the thrombus in the left internal carotid artery bifurcation and into both A1 and M1 segments. 4. Transthoracic echocardiogram, which shows preserved ejection fraction and no intracardiac thrombus. HISTORY OF PRESENTING ILLNESS: Mr. Jay is a 37-year-old male without any significant past medical history, who was admitted to neurosurgery service after he was found down by his mother. Upon evaluation in the emergency room, he was found to have an intracranial thrombus and he was admitted to Neurosurgery team. He underwent tPA as well as mechanical thrombectomy by Dr. Clifford and was admitted to CCU. After that, an internal medicine team was consulted. Please see the consult note dictated by myself for further details. HOSPITAL COURSE: The patient was eventually stabilized, extubated, and moved to stroke floor and did pretty well. He had minimal residual deficits with right hand. He did have seizures while intubated, which were thought secondary to the CVA. Neurology also saw the patient in-house and agreed with the continuation of aspirin and statin. Keppra was added as well. As of this morning, Neurosurgery has signed off and internal medicine team is supposed to take over the care for discharge. He was seen and examined prior to discharge and is hemodynamically stable. PHYSICAL EXAMINATION: This morning, VITAL SIGNS: Temperature 98.3, pulse of 84, respirations 20, saturating 95% on room air, blood pressure 123/60. GENERAL: No acute distress. Awake, alert, and oriented x3. CHEST: Clear to auscultation bilaterally. Rate and rhythm is regular. NEUROLOGIC: Mild weakness in right hand with adduction of the fingers. Otherwise, no focal neurological deficits. LABORATORY DATA: Lab examination, hypercoagulable panel was sent by [facility], which is negative. His toxicology screen was positive for PCP. Otherwise, lipid panel unremarkable. Homocystine level within normal limits. The patient was counseled extensively about medication compliance and to stay away from any kind of drugs. He is instructed to set up appointment for primary care physician and follow up with Neurology in the outpatient setting. Prescriptions were provided to him. Total time spent in the discharge of this patient 32 minutes. Job ID: [id number]
[2018-02-18 19:12] LABS: Activated Protein C Resistance 2.4 ratio (.)
== END 2018-02-15 12:20 | disposition home or self-care (01) | DRG 23 ==
LOC: ERS 16:36 → CCU 19:53 → 2SE 02-13 18:53
PROVIDERS: ADMIT Neurological Surgery; ATTEND Internal Medicine
PROC: 03CG3ZZ Extirpation of Matter from Intracranial Artery, Percutaneous Approach (ICD-10-PCS; principal; 2018-02-10)
PROC: B3151ZZ Fluoroscopy of Bilateral Common Carotid Arteries using Low Osmolar Contrast (ICD-10-PCS; 2018-02-10)
PROC: B3181ZZ Fluoroscopy of Bilateral Internal Carotid Arteries using Low Osmolar Contrast (ICD-10-PCS; 2018-02-10)
PROC: 3E03317 Introduction of Other Thrombolytic into Peripheral Vein, Percutaneous Approach (ICD-10-PCS; 2018-02-10)
PROC: 0BH17EZ Insertion of Endotracheal Airway into Trachea, Via Natural or Artificial Opening (ICD-10-PCS; 2018-02-10)
PROC: 5A1945Z Respiratory Ventilation, 24-96 Consecutive Hours (ICD-10-PCS; 2018-02-10)
DX: I63.032 Cerebral infarction due to thrombosis of left carotid artery (principal); J81.0 Acute pulmonary edema; G81.91 Hemiplegia, unspecified affecting right dominant side; R56.9 Unspecified convulsions; F17.210 Nicotine dependence, cigarettes, uncomplicated; F16.10 Hallucinogen abuse, uncomplicated; R29.810 Facial weakness
CPT/HCPCS: 36415; 36416; 36596; 70450; 70496; 70498; 71045; 72125; 75902; 80048; 80053; 80061; 80306; 80307; 81240; 81241; 82550; 82805; 83090; 84484; 85025; 85240; 85250; 85300; 85303; 85305; 85307; 85379; 85598; 85610; 85613; 85652; 85670; 85730; 86038; 86146; 86147; 86225; 93005; 93306; 94002; 94003; 96365; C1757; C1887; C9113; G8978-GP-CM; G8979-GP-CK; G8987-GO-CM; G8988-GO-CK; G8996-GN-CH; G8997-GN-CH; J0131; J1644; J1953; J2001; J2060; J2543; J2704; J2997; J3010; J7050; Q2009

== ENCOUNTER 2020-02-22 17:09 | Emergency (ER) | payer SELFPAY ==
--- NOTE | 2020-02-22 17:46 | RAD ---
EXAM: Single view of the chest HISTORY: Syncope with questionable pericarditis COMPARISON: 02/12/2018 FINDINGS: Single view of the chest shows a normal sized cardiomediastinal silhouette. There is no yeni dence of consolidation, mass, or pleural effusion. No acute osseous abnormality. IMPRESSION: No evidence of acute cardiopulmonary disease
[2020-02-22 17:47] LABS: #Lymphocytes 1.6 thou/uL (1.20-3.40); #Monocytes 0.4 thou/uL (0.11-0.59); #Neutrophils 3.9 thou/uL (1.40-6.50); %Basophils 0.4 % (0.0-1.0); %Eosinophils 0.3 % (0.0-10.0); %Lymphocytes 27.5 % (21.0-51.0); %Monocytes 7.2 % (0.0-10.0); %Neutrophils 64.6 % (42.0-75.0); Hemoglobin 13.7 g/dL (14.0-18.0); Mean Corpuscular HGB CONC 32.1 g/dL (32.0-36.0); Mean Corpuscular Hemoglobin 27.9 pg (27.0-31.0); Mean Platelet Volume 7.3 fL (7.4-10.4); Platelet Count 308 thou/uL (130-400); RBC Distribution Width 12.5 % (11.5-14.5); Red Blood Cell (RBC) Count 4.93 mill/uL (4.70-6.10)
--- NOTE | 2020-02-22 17:53 | CT ---
EXAM: CT brain without contrast HISTORY: Syncope with head trauma COMPARISON: 02/11/2018, CTA head 02/10/2018 TECHNIQUE: Multiple contiguous axial images were obtained and a CT of the brain without contrast. FINDINGS: There are small areas of insufflation the left frontal and parietal lobes that were not see n on the prior CT. These appear remote and no new confluent infarction is appreciated. There is no evidence of hydrocephalus, intracranial hemorrhage, or extra-axial fluid collection. The calvarium and overlying soft tissues are unremarkable. The visualized paranasal sinuses and masto id air cells are well aerated. IMPRESSION: 1. No evidence of acute intracranial abnormality 2. There are interval development of areas of encephalomalacia the left frontal and parietal lobes wh ich are sequela from prior left MCA distribution infarction.
[2020-02-22 18:04] LABS: ALT (SGPT) 16 U/L (8-55); AST (SGOT) 20 U/L (5-34); Albumin 4.1 g/dL (3.5-5.0); Alkaline Phosphatase 64 U/L (40-110); Anion Gap 16 mmol/L (10-20); BUN (Urea Nitrogen) 12 mg/dL (8.9-20.6); Bilirubin, Total 0.5 mg/dL (0.2-1.2); Calc. Creatinine Clearance 0 mL/min (70-130); Calcium 8.4 mg/dL (7.8-10.44); Carbon Dioxide 24 mmol/L (22-29); Chloride 106 mmol/L (98-107); Globulin 3.2 g/dL (2.4-3.5); Glucose 104 mg/dL (70-105); Potassium 3.3 mmol/L (3.5-5.1); Protein, Total 7.3 g/dL (6.0-8.3); Sodium 143 mmol/L (136-145)
[2020-02-22 18:05] LABS: Acetaminophen Less than 6.0 mcg/mL (10.0-30.0); Alcohol Less than 10 mg/dL (Less than 10); CK (CPK) 550 U/L (30-200); Salicylate Less than 8.0 mg/dL (15.0-30.0)
[2020-02-22 18:53] LABS: Bacteria/HPF None Seen HPF (None Seen); Bilirubin Negative (Negative); Blood, Urine Negative (Negative); Clarity Clear (Clear); Glucose, Urine (Dipstick) Normal (Negative); Ketone, Urine Negative (Negative); Leukocyte Negative Leu/uL (Negative); Nitrite Negative (Negative); Protein, Urine (Dipstick) 30 mg/dL (Neg-Trace); RBC/HPF None Seen HPF (0-3); Specific Gravity, Urine 1.025 (1.002-1.036); Squamous Epithelial 0-3 HPF (0-3); Urobilinogen Normal mg/dL (Less than 2); WBC/HPF 0-3 HPF (0-3)
[2020-02-22 18:57] LABS: Amphetamine Not Detected (NotDetected); Barbiturates Screen Not Detected (NotDetected); Benzodiazepine Screen Not Detected (NotDetected); Cocaine Metabolite Screen Not Detected (NotDetected); Medtox Control Line Valid? VALID (VALID); Medtox Reader # READER 4; Methadone Not Detected (NotDetected); Methamphetamine Not Detected (NotDetected); Opiate Screen Not Detected (NotDetected); Oxycodone Screen Not Detected (NotDetected); Phencyclidine (PCP) Detected (NotDetected); THC/Cannabinoid Screen Not Detected (NotDetected); Tricyclic Screen Not Detected (NotDetected)
== END 2020-02-22 19:37 | disposition home or self-care (01) ==
LOC: ERS 17:09
DX: R55 Syncope and collapse (principal); F17.210 Nicotine dependence, cigarettes, uncomplicated; Z86.73 Personal history of transient ischemic attack (TIA), and cerebral infarction without residual deficits
CPT/HCPCS: 36415; 70450; 71045; 80053; 80306; 80307; 81003; 81015; 82550; 83880; 84484; 85025; 93005

== ENCOUNTER 2020-10-03 20:07 | Emergency (ER) | payer SELFPAY ==
[2020-10-03 21:16] LABS: AST (SGOT) 52 U/L (5-34); Albumin 4.7 g/dL (3.5-5.0); Anion Gap 13 mmol/L (10-20); Bilirubin, Total 0.3 mg/dL (0.2-1.2); Calc. Creatinine Clearance 0 mL/min (70-130); Carbon Dioxide 23 mmol/L (22-29); Chloride 105 mmol/L (98-107); Globulin 3.2 g/dL (2.4-3.5); Potassium 4.2 mmol/L (3.5-5.1); Protein, Total 7.9 g/dL (6.0-8.3); Sodium 137 mmol/L (136-145)
[2020-10-03 21:20] LABS: ALT (SGPT) 45 U/L (8-55); Alkaline Phosphatase 73 U/L (40-110); BUN (Urea Nitrogen) 16 mg/dL (8.9-20.6); Band 14 % (5-11); Glucose 90 mg/dL (70-105); Hemoglobin 14.7 g/dL (14.0-18.0); Lymphocytes 18 % (21-51); MDiff Complete? YES; Mean Corpuscular HGB CONC 32.6 g/dL (32.0-36.0); Mean Corpuscular Hemoglobin 28.6 pg (27.0-31.0); Mean Corpuscular Volume 87.9 fL (78.0-98.0); Mean Platelet Volume 7.6 fL (7.4-10.4); Monocytes 13 % (0-10); Neutrophil 54 % (42-75); Platelet Count 250 thou/uL (130-400); RBC Distribution Width 13.6 % (11.5-14.5); Red Blood Cell (RBC) Count 5.14 mill/uL (4.70-6.10); White Blood Cell (WBC) Count 5.4 thou/uL (4.8-10.8)
== END 2020-10-04 01:47 | disposition home or self-care (01) ==
LOC: ERS 20:07
DX: R55 Syncope and collapse (principal); E86.0 Dehydration; F17.210 Nicotine dependence, cigarettes, uncomplicated
CPT/HCPCS: 36415; 71045; 80053; 82550; 84484; 85025; 93005

== ENCOUNTER 2021-03-28 17:53 | Emergency (ER) | payer SELFPAY ==
[2021-03-29 15:46] LABS: SARS-CoV-2 PCR by NAA Not Detected (NotDetected)
== END 2021-03-28 19:58 | disposition home or self-care (01) ==
LOC: ERS 17:53
DX: R05.9 Cough, unspecified (principal); R50.9 Fever, unspecified; R51.9 Headache, unspecified; F17.210 Nicotine dependence, cigarettes, uncomplicated; Z20.822 Contact with and (suspected) exposure to COVID-19; Z86.73 Personal history of transient ischemic attack (TIA), and cerebral infarction without residual deficits
CPT/HCPCS: 99284; U0003; U0005